=== PATIENT | male | born 1995 | race Caucasian/White ===

== ENCOUNTER 2023-07-26 10:36 | Emergency (ER) | payer SELFPAY ==
--- NOTE | 2023-07-26 12:00 | RAD REPORT ---
EXAM DESCRIPTION: Olga Alvarado (2 Views)07/26/2023 11:48 am CLINICAL HISTORY: Chest pain COMPARISON: None FINDINGS: The lungs appear clear of acute infiltrate. The heart is normal size IMPRESSION: No acute abnormalities displayed
--- NOTE | 2023-07-26 12:08 | ER ---
Nurse's Notes [facility] Name: Christiano Doyle Age: 27 yrs Sex: Male : 1995 Arrival Date: 07/26/2023 Time: 10:36 Bed 14 Private MD: Diagnosis: Chest pain, unspecified-chest wall pain Presentation: 07/26 10:44 Chief complaint: Patient states: "I've got some substernal pain going on. It started ss yesterday." No known injury. Reports that it is tender upon palpation and when stretching. Coronavirus screen: Client denies travel out of the [place] in the last 14 days. Ebola Screen: Patient denies exposure to infectious person. Patient denies travel to an Ebola-affected area in the 21 days before illness onset. Initial Sepsis Screen: Does the patient meet any 2 criteria? No. Patient's initial sepsis screen is negative. Does the patient have a suspected source of infection? No. Patient's initial sepsis screen is negative. Risk Assessment: Do you want to hurt yourself or someone else? Patient reports no desire to harm self or others. Onset of symptoms was July 25, 2023. 10:44 Method Of Arrival: Ambulatory ss 10:44 Acuity: TALI 3 ss Historical: - Allergies: 10:46 No Known Allergies; ss - Home Meds: 10:46 None [Active]; ss - PMHx: 10:46 None; ss - PSHx: 10:46 R wrist; ss - Immunization history:: Adult Immunizations unknown. - Social history:: Smoking status: Patient denies any tobacco usage or history of. Screenin:50 [facility] ED Fall Risk Assessment (Adult) History of falling in the last 3 months, rs5 including since admission No falls in past 3 months (0 pts) Confusion or Disorientation No (0 pts) Intoxicated or Sedated No (0 pts) Impaired Gait No (0 pts) Mobility Assist Device Used No (0 pt) Altered Elimination No (0 pt) Score/Fall Risk Level 0 - 2 = Low Risk Oriented to surroundings, Maintained a safe environment. Abuse screen: Denies threats or abuse. Nutritional screening: No deficits noted. Tuberculosis screening: No symptoms or risk factors identified. Assessment: 10:50 General: Appears in no apparent distress. uncomfortable, Behavior is calm, cooperative. rs5 Pain: Denies pain. Neuro: Level of Consciousness is awake, alert, obeys commands, Oriented to person, place, time, situation. Cardiovascular: Reports substernal discomfort since yesterday morning Denies chest pain, lightheadedness, nausea, vomiting, Heart tones S1 S2 present Rhythm is regular. Respiratory: Airway is patent Respiratory effort is even, unlabored, Respiratory pattern is regular, symmetrical, Breath sounds are clear bilaterally. Denies shortness of breath. GI: Abdomen is flat, non-distended, Bowel sounds present X 4 quads. Abd is soft and non tender X 4 quads. Patient currently denies nausea, vomiting. : No signs and/or symptoms were reported regarding the genitourinary system. EENT: No signs and/or symptoms were reported regarding the EENT system. Derm: Skin is intact, Skin is pink, warm \\T\\ dry. Musculoskeletal: Range of motion: intact in all extremities. 12:10 Reassessment: Patient and/or family updated on plan of care and expected duration. Pain rs5 level reassessed. Patient is alert, oriented x 3, equal unlabored respirations, skin warm/dry/pink. Vital Signs: 10:44 BP 127 / 67; Pulse 77; Resp 16; Temp 97.9; Pulse Ox 100% on R/A; Weight 106.59 kg; rs5 Height 5 ft. 10 in. ; 10:44 BP 160 / 96; ss 11:20 BP 122 / 66; Pulse 67; Resp 17; Pulse Ox 99% on R/A; rs5 10:44 Body Mass Index 33.72 (106.59 kg, 177.8 cm) rs5 ED Course: 10:40 Patient arrived in ED. im 10:41 Deepa Deal [facility]C [facility]. kb 10:41 Hollis Wakefield MD is Attending Physician. kb 10:46 Triage completed. ss 10:46 Arm band placed on right wrist. ss 10:50 Patient has correct armband on for positive identification. Bed in low position. Call rs5 light in reach. Side rails up X2. Client placed on continuous cardiac and pulse oximetry monitoring. NIBP monitoring applied. bill collector on. Pulse ox on. 10:50 Patient maintains SpO2 saturation greater than 95% on room air. rs5 10:52 Michael Dempsey, RN is Primary Nurse. rs5 11:50 Chest Pa And Lat (2 Views) XRAY In Process Unspecified. EDMS 12:10 No provider procedures requiring assistance completed. rs5 12:10 Patient did not have IV access during this emergency room visit. rs5 Administered Medications: 11:14 Not Given (Patient Refused; Pt denies painn): mg IM once rs5 Medication: 12:10 VIS not applicable for this client. rs5 Outcome: 12:07 Discharge ordered by . [email or web address] 12:10 Discharged to home ambulatory, rs5 12:10 Condition: stable 12:10 Discharge instructions given to patient, Instructed on discharge instructions, follow up and referral plans. Demonstrated understanding of instructions, follow-up care, 12:20 Patient left the ED. rs5 Signatures: Dispatcher [employer] EDMS Deepa Deal, FISHER SWORDFISH-C FISHER SWORDFISH-CkIzzy Lim RN RN Michael Dempsey, RN RN rs5 Kandy French im Corrections: (The following items were deleted from the chart) 12:41 10:44 Pulse 77bpm; Resp 16bpm; Pulse Ox 100% RA; Temp 97.9F; 106.59 kg; Height 5 ft. 10 rs5 in.; BMI: 33.7; ss 12:41 10:50 Cardiovascular: Reports chest discomfort since yesterday morning Denies chest rs5 pain, lightheadedness, nausea, vomiting, Heart tones S1 S2 present Rhythm is regular rs5
--- NOTE | 2023-07-26 12:08 | EDPHYS ---
Physician Documentation [facility] Name: Christiano Doyle Age: 27 yrs Sex: Male : 1995 Arrival Date: 07/26/2023 Time: 10:36 Bed 14 Private MD: ED Physician Hollis Wakefield HPI: 07/26 11:24 This 27 yrs old Male presents to ER via Ambulatory with complaints of Chest Pain, kb Abdominal Pain. 11:24 Patient is a 27-year-old male who presents for chest pain that started yesterday. Pain kb is reproducible, worse with deep inspiration, movement and palpation. Pain is very localized just to the right of xiphoid process. Denies palpitations, shortness of breath.. Historical: - Allergies: 10:46 No Known Allergies; ss - Home Meds: 10:46 None [Active]; ss - PMHx: 10:46 None; ss - PSHx: 10:46 R wrist; ss - Immunization history:: Adult Immunizations unknown. - Social history:: Smoking status: Patient denies any tobacco usage or history of. ROS: 11:25 Constitutional: Negative for fever, chills, and weight loss, kb 11:25 Cardiovascular: Positive for chest pain, 11:25 All other systems are negative, Exam: 11:03 Constitutional: This is a well developed, well nourished patient who is awake, alert, kb and in no acute distress. Head/Face: Normocephalic, atraumatic. ENT: Moist Mucous membranes Cardiovascular: Regular rate Respiratory: Respirations even and unlabored. No increased work of breathing. Talking in full sentences Abdomen/GI: Soft, non-tender. No distention Skin: Warm, dry with normal turgor. Normal color. MS/ Extremity: Pulses equal, no cyanosis. Neurovascular intact. Full, normal range of motion. Neuro: Awake and alert, GCS 15, oriented to person, place, time, and situation. Moves all extremities. Normal gait. 11:03 Chest/axilla: Inspection: normal, Palpation: tenderness, that is moderate, of the right breast, that totally reproduces the patient's complaints, 11:03 ECG was reviewed by the Attending Physician. Vital Signs: 10:44 BP 127 / 67; Pulse 77; Resp 16; Temp 97.9; Pulse Ox 100% on R/A; Weight 106.59 kg; rs5 Height 5 ft. 10 in. ; 10:44 BP 160 / 96; ss 11:20 BP 122 / 66; Pulse 67; Resp 17; Pulse Ox 99% on R/A; rs5 10:44 Body Mass Index 33.72 (106.59 kg, 177.8 cm) rs5 MDM: 10:41 Patient medically screened. kb 11:25 Differential diagnosis: abnormal EKG, chest wall pain, pneumothorax, pulmonary embolus. kb Data reviewed: vital signs, nurses notes. Test considered but Not performed: Labs: CBC, basic and troponin considered but patient has no medical history, pain is reproducible. Scoring Tools PERC Rule for PE Age >/= 50 No HR >/= 100 No O2 Sat Room Air < 95% No Unilateral leg swelling No Hemoptysis No Recent surgery or trauma </= 4 wks ago requiring treatment with general anesthesia No (0 pt) Prior PE or DVT No Hormone use (Oral contraceptives, hormone replacement or estrogenic hormones use in males or female patients No. 12:07 Counseling: I had a detailed discussion with the patient and/or guardian regarding the kb historical points, exam findings, and any diagnostic results supporting the discharge/admit diagnosis, radiology results, the need for outpatient follow up, a family practitioner, to return to the emergency department if symptoms worsen or persist or if there are any questions or concerns that arise at home. 07/26 10:48 Order name: Chest Pa And Lat (2 Views) XRAY; Complete Time: 12:07 kb 07/26 10:48 Order name: EKG; Complete Time: 10:49 kb 07/26 10:48 Order name: EKG - Nurse/Tech; Complete Time: 11:03 kb EC:03 Rate is 64 beats/min. Rhythm is regular. QRS Tate is Normal. AR interval is normal at kb 156 msec. QRS interval is normal at 90 msec. QT interval is normal at 379 msec. Administered Medications: 11:14 Not Given (Patient Refused; Pt denies painn): [id number] mg IM once rs5 Disposition Summary: 07/26/23 12:07 Discharge Ordered Notes: Location: Home kb Condition: Stable kb Diagnosis - Chest pain, unspecified - chest wall pain kb Followup: kb - With: Emergency Department - When: As needed - Reason: Worsening of condition Followup: kb - With: Private Physician - When: 2 - 3 days - Reason: Recheck today's complaints, Continuance of care, Re-evaluation by your physician Discharge Instructions: - Discharge Summary Sheet kb - Chest Wall Pain, [id number] kb Forms: - Medication Reconciliation Form kb - Thank You Letter kb - Antibiotic Education kb - Prescription Opioid Use kb - Patient Portal Instructions kb - Leadership Thank You Letter kb - Work release form rs5 Addendum: 07/28/2023 07:37 I was immediately available for consultation during this patient's visit. I did not e c2 personally see the patient or guide the patient's care.. Signatures: Dispatcher [employer] Deepa Hollis, FILTRATION PLANT MECHANIC-C FILTRATION PLANT MECHANIC-Izzy Leach, RAFAELA RN Michael Mays RN RN rs5 Hollis Wakefield MD MD ec2
[2023-07-26 12:44] VITALS: TEMP 97.9
[2023-07-26 12:46] VITALS: BP 122/66; O2SAT 99
--- NOTE | 2023-07-29 17:34 | EKG ---
Test Date: 2023-07-26 Test Time: 10:59:23 Field Mechanic/Site Lead: OSMAR MEASUREMENT RESULTS: Intervals: Rate: 64 WV: 156 QRSD: 90 QT: 368 QTc: 379 [place]: P: 59 WV: 156 QRS: 68 T: 34 INTERPRETIVE STATEMENTS: Normal sinus rhythm Normal ECG No previous ECG available for comparison Electronically Signed On 07-29-23 17:25:23 COUNCILOR by Lawrence Pandya
== END 2023-07-26 12:20 | disposition home or self-care (01) ==
LOC: ER 10:36
DX: R07.89 Other chest pain (principal)
CPT/HCPCS: 71046; 93005; 99284